=== PATIENT | female | born 1945 | race Caucasian/White ===

== ENCOUNTER 2016-07-19 15:35 | Emergency (ER) | payer OTHER, MEDICARE ==
[2016-07-19] MEDS ORDERED: FLUORESCEIN SODIUM 1 MG STRIP OP ONE ×2 (16:08→16:10)
[2016-07-19] MEDS ORDERED: PROPARACAINE 0.5% 15 ML OPHT DROP ONE (16:08)
[2016-07-19] MEDS ORDERED: PROPARACAINE 0.5% 15 ML OPHT DROP OP ONE (16:10)
--- NOTE | 2016-07-19 16:11 | EDPHY ---
H & P Time Seen by Provider: 07/19/16 15:59 HPI/ROS: CHIEF COMPLAINT: "I scratched my eye" HISTORY OF PRESENT ILLNESS: The patient is a 71-year-old female who presents emergency department after scratching her left eye. She states she is "new to contacts" starting 2 weeks ago. She was having difficulty taking her contact out. She binge to contact and came out onto her nose. However, she did not see it and she again pinched her eye with her fingers. She scratched her eye at the 9 and 3 o'clock positions. She now complains of moderate pain. She describes photophobia. She has no fevers or chills. REVIEW OF SYSTEMS: My complete review of systems is negative except as mentioned in the HPI. Past Medical/Surgical History: Includes breast cancer, hypothyroidism, double mastectomy, kidney disease Smoking Status: Never smoked Physical Exam: Vitals noted GENERAL: Well-appearing, in no acute distress, alert. Visual acuity: Noted. Eyelids: Normal inspection, everted for exam. Conjunctiva and sclera: Normal inspection. No foreign material. No subconjunctival hemorrhage. No exudate. Not injected. Corneas: Normal inspection. Examined with fluorescein dye: No uptake, abrasion, or ulcer. EOMs: Intact. Pupils: PERRL, normal accommodation. Anterior chambers: Normal inspection. No hyphema. No cells or flare. Posterior segments: Limited due to no dilation. No obvious abnormality seen Constitutional: Initial Vital Signs Temperature (C) 36.8 C 07/19/16 15:40 Heart Rate 86 07/19/16 15:40 Respiratory Rate 16 07/19/16 15:40 Blood Pressure 109/78 07/19/16 15:40 O2 Sat (%) 98 07/19/16 15:40 O2 Delivery Mode Nasal Cannula Allergies/Adverse Reactions: celecoxib [From Celebrex] Allergy (Verified 12/13/13 16:48) chlorhexidine Allergy (Verified 12/13/13 16:48) gabapentin [From Neurontin] Allergy (Verified 12/13/13 16:48) SUDAFED Allergy (Uncoded 12/13/13 16:48) VIOXX Allergy (Uncoded 12/13/13 16:46) Home Medications: Medication Instructions Recorded Alendronate Sodium [Fosamax 70 MG 70 mg PO WE@0700 12/14/13 (*)] Aspirin [Aspirin 81mg (*)] 81 mg PO DAILY 12/14/13 Calcium Carbonate/Vitamin D2 1 each PO DAILY 12/14/13 [Oyster Shell Calcium-Vit D Tab] Cetirizine [ZyrTEC 10 mg (*)] 10 mg PO DAILY PRN 12/14/13 LORazepam [Ativan (*)] 1 mg PO HS 12/14/13 Levothyroxine [Synthroid 125 mcg 100 mcg PO DAILY06 12/14/13 (*)] Venlafaxine Xr [Effexor Xr 37.5MG 37.5 mg PO HS 12/14/13 (*)] Vitamin B Complex [B Complex] 1 each PO DAILY 12/14/13 Vitamin E [Vitamin E 400 units] 400 unit PO DAILY 12/14/13 Zolpidem Tartrate [Ambien 5MG (*)] 10 mg PO HS 12/14/13 buPROPion XL [Wellbutrin 150mg XL] 300 mg PO DAILY 12/14/13 Magnesium 1 PO PRN 03/17/16 Pravastatin Sodium 20 mg PO DAILY 03/17/16 Medical Decision Making ED Course/Re-evaluation: In the emergency department I discussed possible etiologies with the patient. Patient was given proparacaine drops prior to the exam. Patient was found to have a contact lens still in place during her exam. This was removed. Slit- lamp exam did not reveal any corneal abrasion or abscess. There is no other visible foreign body. I discussed this with the patient. I consulted with Dr. Jackman who does not recommend antibiotic prophylaxis with no findings on slit- lamp exam. I discussed this with the patient. She was given warnings prior to leaving. She will not wear contacts until she follows up with her journeyman powerhouse operator. Differential Diagnosis: My differential includes but is not limited to conjunctivitis, corneal abrasion , corneal ulceration, I foreign body, contact lens irritation - Data Points Medications Given: Discontinued Medications Fluorescein Sodium ([id number]) 1 mg OP EDNOW ONE Stop: 07/19/16 16:11 Last Admin: 07/19/16 16:10 Dose: 1 mg Proparacaine HCl (Alcaine 0.5%) 1 drops OP EDNOW ONE Stop: 07/19/16 16:11 Last Admin: 07/19/16 16:11 Dose: 1 drop Departure - Departure Disposition: Home, Routine, Self-Care Clinical Impression: Contact lens intolerance, Contact lens stuck Condition: Good Instructions: Eye Foreign Body (ED) Additional Instructions: Your contact was still in place. This was removed. Do not use your contact lenses until you follow up with her journeyman powerhouse operator. Referrals: Rebel Pa MD [Primary Care Provider] - As per Instructions Julian Jackman MD [Medical Doctor] - 2-3 days, call for appt.
[2016-07-19 16:56] VITALS: BP 125/85; PULSE 84; RESP 18; TEMP 97.7; O2SAT 96
== END 2016-07-19 16:53 | disposition home or self-care (01) ==
DX: H18.822 Corneal disorder due to contact lens, left eye (principal); Z85.3 Personal history of malignant neoplasm of breast; Z79.82 Long term (current) use of aspirin; X58.XXXA Exposure to other specified factors, initial encounter

== ENCOUNTER 2016-07-30 22:55 | Observation (INO) | payer OTHER, MEDICARE ==
[2016-07-30] MEDS ORDERED: NS 1,000 ML IV ONE (23:02)
--- NOTE | 2016-07-30 23:08 | EDPHY ---
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 She presents emergency room by EMS with stroke-like symptoms. Patient states she was sitting down watching TV at 9:30 p.m. she noticed that her face felt a little bit tingly on the right side of her face as well as her right hand was more sensitive than normal. She called Dr. Flores the neurologist on-call and he recommend that she comes to the emergency room. Upon arrival here in emergency room does complain of sensation difference of her right face compared her left face as well as right upper extremity right lower extremity compared to her left upper extremity left lower extremity. She tells me she has no focal weakness, no chest pain, no shortness of breath, no headache. No neck pain. She has no nausea or visual disturbance she is complaining of right face right arm right leg tingling. Of note on neurological exam she has sensation difference cup of the right- sided body compared to left-sided body however no focal weakness. Otherwise her cranial nerves are intact no focal neuro deficit. Due to her sensation difference of the right side of her body compare left- sided body history of stroke and in the window of tPA symptoms started 9:30 p.m. it is now 11:05 p.m.. I did call a stroke alert for this patient. Her NIH stroke scale is extremely low. she does tell me when she had her stroke in 2014 at [facility] she did not receive tPA. She currently takes no anticoagulants but does take a baby aspirin. Time of symptom onset 9:30 p.m. Time of ER arrival 11:00 p.m. Time of stroke alert called the emergency room at 11:05 p.m. NIHSS: Time of NIHSS 1105PM: YONATHAN 1+ Due to Sensation difference. Past Medical History: CVA, ischemic stroke to the thalamus, breast cancer, CKD Stage3. Past Surgical History: Radical mastectomy Social History: Denies daily use of drugs alcohol tobacco products Family History: Noncontributory ROS REVIEW OF SYSTEMS: A comprehensive 10 point review of systems is otherwise negative aside from elements mentioned in the history of present illness. Exam Constitutional triage nursing summary reviewed, vital signs reviewed, awake/ alert. Eyes normal conjunctivae and sclera, EOMI, PERRLA. HENT normal inspection, atraumatic, moist mucus membranes, no epistaxis, neck supple/ no meningismus, no raccoon eyes. Respiratory clear to auscultation bilaterally, normal breath sounds, no respiratory distress, no wheezing. Cardiovascular rate normal, regular rhythm, no murmur, no edema, distal pulses normal. Gastrointestinal soft, non-tender, no rebound, no guarding, normal bowel sounds, no distension, no pulsatile mass. Genitourinary no CVA tenderness. Musculoskeletal no midline vertebral tenderness, full range of motion, no calf swelling, no tenderness of extremities, no meningismus, good pulses, neurovascularly intact. Skin pink, warm, & dry, no rash, skin atraumatic. Neurologic only pertinent focal neurological deficit on exam is a sensation difference of the right side of her body compared to left side of her body specifically right face upper and lower region of her face as well as right arm and hand compared to her left arm and hand right leg compared her left leg. No focal weakness. awake, alert and oriented x 3, AAOx3, moves all 4 extremities equally, motor intact, sensory intact, CN II-XII intact, normal cerebellar, normal vision, normal speech. Psychiatric normal mood/affect. Heme/Lymph/Immune no lymphadenopathy. Differential Diagnosis: Includes but is not limited to in a particular order, ischemic stroke, lacunar infarct, intracranial bleed, neuropathy, anxiety Medical Decision Making: plan for this patient should be placed on full awake overnight monitor showed have an IV established, she will have an EKG, chest x-ray she has been paged out as a stroke alert she will have a CT scan of her head without contrast to evaluate for acute stroke. Neurology will be consulted. It is unlikely this patient will get tPA as her NIH stroke scale is extremely low. Re-evaluation: CT scan of the Head w/o. The results of the study are Negative for bleed, or cva The study was read by Dr. Acosta. I viewed the images myself on the PACS system. ED x-ray EKG interpretation by me on record in [employer] system. Impression time of EKG 2306, this is sinus rhythm rate of 76, no signs of cardiac arrhythmia, no signs of acute ischemia. 2313: Spoke with Dr. Edward with [facility]. Will see and evaluate the patient. Does not feel this patient is a tPA candidate given the minimal symptoms. 2318: Patient is back from CT resting comfortably no further complaints. No progression of stroke-like symptoms. [facility] is evaluating her at this time 1212AM: Spoke with Dr. Noriega agrees to admit this patient this patient is hemodynamically stable this time no further progression of symptoms. Would like the patient admitted to [facility]. Patient have inpatient MRI without contrast of the head and MRA. 1213AM: I did update this patient she is agreeable for admission overnight for further delineation of possible stroke. This time she has no progression of stroke symptoms. She does not require tPA given low NIH stroke scale and very mild symptoms. We will closely monitor to see if she progresses. Full-dose aspirin has been given in the emergency room. Source: Patient, EMS - Personal History Tetanus Vaccine Date: < 10 YEARS - Medical/Surgical History Hx Asthma: No Hx Chronic Respiratory Disease: No Hx Diabetes: No Hx Cardiac Disease: No Hx Renal Disease: Yes Hx Cirrhosis: No Hx Alcoholism: No Hx HIV/AIDS: No Hx Splenectomy or Spleen Trauma: No Other PMH: BREAST CANCER, HYPOTHYROID, DOUBLE MASTECTOMY, KIDNEY DISEASE - Social History Smoking Status: Never smoked Constitutional: Initial Vital Signs Temperature (C) 36.6 C 07/30/16 23:12 Heart Rate 80 07/30/16 23:12 Respiratory Rate 16 07/30/16 23:12 Blood Pressure 162/101 H 07/30/16 23:12 O2 Sat (%) 97 07/30/16 23:12 O2 Delivery Mode Room Air Allergies/Adverse Reactions: celecoxib [From Celebrex] Allergy (Verified 12/13/13 16:48) chlorhexidine Allergy (Verified 12/13/13 16:48) gabapentin [From Neurontin] Allergy (Verified 12/13/13 16:48) propofol Allergy (Verified 07/30/16 23:12) SUDAFED Allergy (Uncoded 12/13/13 16:48) VIOXX Allergy (Uncoded 12/13/13 16:46) Home Medications: Medication Instructions Recorded Alendronate Sodium [Fosamax 70 MG 70 mg PO WE@0700 12/14/13 (*)] Aspirin [Aspirin 81mg (*)] 81 mg PO DAILY 12/14/13 Calcium Carbonate/Vitamin D2 1 each PO DAILY 12/14/13 [Oyster Shell Calcium-Vit D Tab] Cetirizine [ZyrTEC 10 mg (*)] 10 mg PO DAILY PRN 12/14/13 LORazepam [Ativan (*)] 1 mg PO HS 12/14/13 Levothyroxine [Synthroid 125 mcg 100 mcg PO DAILY06 12/14/13 (*)] Venlafaxine Xr [Effexor Xr 37.5MG 37.5 mg PO HS 12/14/13 (*)] Vitamin B Complex [B Complex] 1 each PO DAILY 12/14/13 Vitamin E [Vitamin E 400 units] 400 unit PO DAILY 12/14/13 Zolpidem Tartrate [Ambien 5MG (*)] 10 mg PO HS 12/14/13 buPROPion XL [Wellbutrin 150mg XL] 300 mg PO DAILY 12/14/13 Magnesium 1 PO PRN 03/17/16 Adrenal Support 07/30/16 CO Q-10 07/30/16 Nerve Renew 07/30/16 [place]-3 07/30/16 Red Yeast Rice 07/30/16 Medical Decision Making - Data Points Laboratory Results: Laboratory Results 07/30/16 23:05 07/30/16 23:05 07/30/16 07/30/16 07/30/16 23:05 23:05 23:05 WBC 6.25 10^3/uL 10^3/uL (3.80-9.50) RBC 5.22 10^6/uL 10^6/uL (4.18-5.33) Hgb 15.9 g/dL g/dL (12.6-16.3) POC Hgb Hct 47.3 % H % (38.0-47.0) POC Hct MCV 90.6 fL fL (81.5-99.8) MCH 30.5 pg pg (27.9-34.1) MCHC 33.6 g/dL g/dL (32.4-36.7) RDW 13.0 % % (11.5-15.2) Plt Count 269 10^3/uL 10^3/uL (150-400) MPV 10.6 fL fL (8.7-11.7) Neut % (Auto) 58.4 % % (39.3-74.2) Lymph % (Auto) 26.9 % % (15.0-45.0) Teller % (Auto) 9.4 % % (4.5-13.0) Eos % (Auto) 4.5 % % (0.6-7.6) Baso % (Auto) 0.5 % % (0.3-1.7) Nucleat RBC Rel Count 0.0 % % (0.0-0.2) Absolute Neuts (auto) 3.65 10^3/uL 10^3/uL (1.70-6.50) Absolute Lymphs (auto) 1.68 10^3/uL 10^3/uL (1.00-3.00) Absolute Monos (auto) 0.59 10^3/uL 10^3/uL (0.30-0.80) Absolute Eos (auto) 0.28 10^3/uL 10^3/uL (0.03-0.40) Absolute Basos (auto) 0.03 10^3/uL 10^3/uL (0.02-0.10) Absolute Nucleated RBC 0.00 10^3/uL 10^3/uL (0-0.01) Immature Gran % 0.3 % % (0.0-1.1) Immature Gran # 0.02 10^3/uL 10^3/uL (0.00-0.10) PT 12.0 SEC SEC (12.0-15.0) INR 0.90 (0.83-1.16) APTT 23.6 SEC SEC (23.0-38.0) POC Sodium Sodium 138 mEq/L mEq/L (134-144) POC Potassium Potassium 4.4 mEq/L mEq/L (3.5-5.2) POC Chloride Chloride 100 mEq/L mEq/L (97-110) Carbon Dioxide 25 mEq/l mEq/l (22-31) Anion Gap 13 mEq/L mEq/L (8-16) POC BUN BUN 19 mg/dL mg/dL (7-23) Creatinine 1.3 mg/dL H mg/dL (0.6-1.0) POC Creatinine Estimated GFR 40 Glucose 93 mg/dL mg/dL (70-100) POC Glucose Calcium 10.8 mg/dL H mg/dL (8.5-10.4) Phosphorus Pending Troponin I < 0.012 ng/mL ng/mL (0-0.034) 07/30/16 23:00 WBC RBC Hgb POC Hgb 17.3 gm/dL H gm/dL (12.3-15.9) Hct POC Hct 51 % H % (35.5-47.5) MCV MCH MCHC RDW Plt Count MPV Neut % (Auto) Lymph % (Auto) Teller % (Auto) Eos % (Auto) Baso % (Auto) Nucleat RBC Rel Count Absolute Neuts (auto) Absolute Lymphs (auto) Absolute Monos (auto) Absolute Eos (auto) Absolute Basos (auto) Absolute Nucleated RBC Immature Gran % Immature Gran # PT INR APTT POC Sodium 142 mEq/L mEq/L (134-144) Sodium POC Potassium 4.1 mEq/L mEq/L (3.3-5.0) Potassium POC Chloride 102 mEq/L mEq/L (96-108) Chloride Carbon Dioxide Anion Gap POC BUN 20 mg/dL mg/dL (7-23) BUN Creatinine POC Creatinine 1.3 mg/dL H mg/dL (0.6-1.2) Estimated GFR Glucose POC Glucose 101 mg/dL H mg/dL (70-100) Calcium Phosphorus Troponin I Point of Care Test Results: 07/30/16 23:00 POC Sodium 142 POC Potassium 4.1 POC Chloride 102 POC BUN 20 POC Creatinine 1.3 H POC Glucose 101 H Departure - Departure Disposition: [facility] Inpatient Acute Clinical Impression: Facial paresthesia Condition: Fair Referrals: Patient,NotPresent [Unknown] - As per Instructions
--- NOTE | 2016-07-30 23:08 | CPEKG ---
Heart Rate: 76 RR Interval: 789 P-R Interval: 156 QRSD Interval: 90 QT Interval: 400 QTC Interval: 450 P [place]: 55 QRS [place]: 32 T Wave [place]: 43 EKG Severity - NORMAL ECG - EKG Impression: SINUS RHYTHM Electronically Signed By: Carlos Calero 01-Aug-2016 06:46:10
[2016-07-30 23:23] LABS: % IMMATURE GRANULYOCYTES 0.3 % (0.0-1.1); ABSOLUTE IMMATURE GRANULOCYTES 0.02 10^3/uL (0.00-0.10); ADD DIFF? NO; ADD MORPH? NO; ADD SCAN? NO; ATYPICAL LYMPHOCYTE FLAG 10 (0-99); FRAGMENT RBC FLAG 0 (0-99); HEMATOCRIT 47.3 % (38.0-47.0); HEMOGLOBIN 15.9 g/dL (12.6-16.3); LEFT SHIFT FLG 0 (0-99); LIPEMIA HEMOLYSIS FLAG 80 (0-99); MEAN CELL HEMOGLOBIN 30.5 pg (27.9-34.1); MEAN CELL HEMOGLOBIN CONCENTR. 33.6 g/dL (32.4-36.7); MEAN CELL VOLUME 90.6 fL (81.5-99.8); MEAN PLATELET VOLUME 10.6 fL (8.7-11.7); PLATELET CLUMPS FLAG 0 (0-99); PLATELET COUNT 269 10^3/uL (150-400); RED BLOOD CELL COUNT 5.22 10^6/uL (4.18-5.33)
[2016-07-30 23:27] LABS: INR 0.9 (0.83-1.16)
[2016-07-30 23:28] LABS: APTT 23.6 SEC (23.0-38.0)
[2016-07-30 23:36] LABS: ANION GAP 13 mEq/L (8-16); CALCIUM 10.8 mg/dL (8.5-10.4); CARBON DIOXIDE 25 mEq/l (22-31); CHLORIDE 100 mEq/L (97-110); CREATININE 1.3 mg/dL (0.6-1.0); GLOMERULAR FILTRATION RATE 40; GLUCOSE 93 mg/dL (70-100); POTASSIUM 4.4 mEq/L (3.5-5.2); SODIUM 138 mEq/L (134-144)
[2016-07-30] MEDS ORDERED: ASPIRIN EC 325 MG TAB PO ONE (23:41)
[2016-07-30 23:47] LABS: TROPONIN I < 0.012 ng/mL (0-0.034)
[2016-07-31] MEDS ORDERED: NS 1,000 ML IV SCH (00:30)
[2016-07-31] MEDS ORDERED: LORazepam 1 MG TAB PO ONE (01:25)
--- NOTE | 2016-07-31 01:30 | PDGENHP ---
History and Physical - Chief Complaint Acute paresthesias - History of Present Illness PCP: Dr. Pa Primary neurologist: Dr. Garza HPI: 71-year-old female presenting with acute paresthesias characterized as numbness located in the right lower extremity, right upper extremity, right face with onset of symptoms at 9:30 p.m. on the day of presentation. Duration has been persistent thereafter. She denies any related paresis, no related headache, no ataxia or dysarthria. She did have some associated precipitating pain located in her left neck but was otherwise feeling well on the date of presentation. She has been taking all of her home medications as scheduled, including her aspirin 81 mg nightly. She does endorse taking a "handful" of supplements and vitamins on the day of presentation. She reports that she has been peeing normally. History Information - Allergies/Home Medication List Allergies/Adverse Reactions: celecoxib [From Celebrex] Allergy (Verified 12/13/13 16:48) chlorhexidine Allergy (Verified 12/13/13 16:48) gabapentin [From Neurontin] Allergy (Verified 12/13/13 16:48) propofol Allergy (Verified 07/30/16 23:12) SUDAFED Allergy (Uncoded 12/13/13 16:48) VIOXX Allergy (Uncoded 12/13/13 16:46) Home Medications: Alendronate Sodium [Fosamax 70 MG (*)] 70 mg PO WE@0700 12/14/13 [Last Taken 04/17 08:00] Aspirin [Aspirin 81mg (*)] 81 mg PO DAILY 12/14/13 [Last Taken 03/16/16 22:00] Calcium Carbonate/Vitamin D2 [[place]yster [place] Calcium-Vit D Tab] 1 each PO DAILY [Last Taken 03/16/16 22:00] Cetirizine [ZyrTEC 10 mg (*)] 10 mg PO DAILY PRN 12/14/13 [Last Taken 03/17/16 08:30] LORazepam [Ativan (*)] 1 mg PO HS 12/14/13 [Last Taken 03/16/16 22:00] Levothyroxine [Synthroid 125 mcg (*)] 100 mcg PO DAILY06 12/14/13 [Last Taken 08:30] Venlafaxine Xr [Effexor Xr 37.5MG (*)] 37.5 mg PO HS 12/14/13 [Last Taken 08:30] Vitamin B Complex [B Complex] 1 each PO DAILY 12/14/13 [Last Taken 03/16/16 08: 00] Vitamin E [Vitamin E 400 units] 400 unit PO DAILY 12/14/13 [Last Taken 03/16/16 08:00] Zolpidem Tartrate [Ambien 5MG (*)] 10 mg PO HS 12/14/13 [Last Taken 03/16/16 22: 00] buPROPion XL [Wellbutrin 150mg XL] 300 mg PO DAILY 12/14/13 [Last Taken 08:30] Magnesium 1 PO PRN 03/17/16 [Last Taken 03/16/16 22:00] Adrenal Support 07/30/16 [Last Taken Unknown] CO Q-10 07/30/16 [Last Taken Unknown] Nerve Renew 07/30/16 [Last Taken Unknown] [place]-3 07/30/16 [Last Taken Unknown] Red Yeast Rice 07/30/16 [Last Taken Unknown] I have personally reviewed and updated: family history, medical history, social history, surgical history - Past Medical History CVA ( Reportedly thalamic in 2014 with workup at [facility] and residual symptoms including right hand hyperesthesia) Additional medical history: Breast cancer status post Arimidex. Chronic kidney disease stage 3 with baseline creatinine 1.2-1.4. Depression and insomnia. Chronic neck pain with chronic neuropathy. Recent corneal abrasion - Surgical History Reports: mastectomy - Family History Additional family history: no recent sick family contacts - Social History Smoking Status: Never smoked Alcohol Use: Occasionally (none on date of presentation) Drug Use: None Additional social history: normally independent in ADLs Review of Systems ROS: 10pt was reviewed & negative except for what was stated in HPI & below Neurological: Reports: paresthesia ( right-sided) Physical Exam Temp Pulse Resp BP Pulse Ox 36.6 C 76 16 135/84 H 96 07/30/16 23:12 07/31/16 00:15 07/31/16 00:15 07/31/16 00:15 07/31/16 00:15 Constitutional: no apparent distress, appears nourished, not in pain Eyes: PERRL, anicteric sclera, EOMI Ears, Nose, Mouth, Throat: moist mucous membranes, hearing normal, ears appear normal, no oral mucosal ulcers Cardiovascular: regular rate and rhythym, no murmur, rub, or gallop, No carotid bruit, No edema Respiratory: no respiratory distress, no rales or rhonchi, clear to auscultation Gastrointestinal: normoactive bowel sounds, soft, non-tender abdomen, no palpable masses Genitourinary: no bladder fullness, no bladder tenderness, no renal bruits Neurologic: AAOx3, CN II-XII Intact, other ( normal heel to johnson, normal finger- to-nose bilaterally), No sensation intact bilaterally ( right-sided subjective paresthesias in the lower extremity, upper extremity, face), No weakness Psychiatric: interacting appropriately, not anxious, not encephalopathic, thought process linear Lab Data & Imaging Review 07/30/16 23:05 07/30/16 23:05 WBC 6.25 10^3/uL (3.80-9.50) 07/30/16 23:05 RBC 5.22 10^6/uL (4.18-5.33) 07/30/16 23:05 Hgb 15.9 g/dL (12.6-16.3) 07/30/16 23:05 POC Hgb 17.3 gm/dL (12.3-15.9) H 07/30/16 23:00 Hct 47.3 % (38.0-47.0) H 07/30/16 23:05 POC Hct 51 % (35.5-47.5) H 07/30/16 23:00 MCV 90.6 fL (81.5-99.8) 07/30/16 23:05 MCH 30.5 pg (27.9-34.1) 07/30/16 23:05 MCHC 33.6 g/dL (32.4-36.7) 07/30/16 23:05 RDW 13.0 % (11.5-15.2) 07/30/16 23:05 Plt Count 269 10^3/uL (150-400) 07/30/16 23:05 MPV 10.6 fL (8.7-11.7) 07/30/16 23:05 Neut % (Auto) 58.4 % (39.3-74.2) 07/30/16 23:05 Lymph % (Auto) 26.9 % (15.0-45.0) 07/30/16 23:05 Stone % (Auto) 9.4 % (4.5-13.0) 07/30/16 23:05 Eos % (Auto) 4.5 % (0.6-7.6) 07/30/16 23:05 Baso % (Auto) 0.5 % (0.3-1.7) 07/30/16 23:05 Nucleat RBC Rel Count 0.0 % (0.0-0.2) 07/30/16 23:05 Absolute Neuts (auto) 3.65 10^3/uL (1.70-6.50) 07/30/16 23:05 Absolute Lymphs (auto) 1.68 10^3/uL (1.00-3.00) 07/30/16 23:05 Absolute Monos (auto) 0.59 10^3/uL (0.30-0.80) 07/30/16 23:05 Absolute Eos (auto) 0.28 10^3/uL (0.03-0.40) 07/30/16 23:05 Absolute Basos (auto) 0.03 10^3/uL (0.02-0.10) 07/30/16 23:05 Absolute Nucleated RBC 0.00 10^3/uL (0-0.01) 07/30/16 23:05 Immature Gran % 0.3 % (0.0-1.1) 07/30/16 23:05 Immature Gran # 0.02 10^3/uL (0.00-0.10) 07/30/16 23:05 PT 12.0 SEC (12.0-15.0) 07/30/16 23:05 INR 0.90 (0.83-1.16) 07/30/16 23:05 APTT 23.6 SEC (23.0-38.0) 07/30/16 23:05 POC Sodium 142 mEq/L (134-144) 07/30/16 23:00 Sodium 138 mEq/L (134-144) 07/30/16 23:05 POC Potassium 4.1 mEq/L (3.3-5.0) 07/30/16 23:00 Potassium 4.4 mEq/L (3.5-5.2) 07/30/16 23:05 POC Chloride 102 mEq/L (96-108) 07/30/16 23:00 Chloride 100 mEq/L (97-110) 07/30/16 23:05 Carbon Dioxide 25 mEq/l (22-31) 07/30/16 23:05 Anion Gap 13 mEq/L (8-16) 07/30/16 23:05 POC BUN 20 mg/dL (7-23) 07/30/16 23:00 BUN 19 mg/dL (7-23) 07/30/16 23:05 Creatinine 1.3 mg/dL (0.6-1.0) H 07/30/16 23:05 POC Creatinine 1.3 mg/dL (0.6-1.2) H 07/30/16 23:00 Estimated GFR 40 07/30/16 23:05 Glucose 93 mg/dL (70-100) 07/30/16 23:05 POC Glucose 101 mg/dL (70-100) H 07/30/16 23:00 Calcium 10.8 mg/dL (8.5-10.4) H 07/30/16 23:05 Phosphorus 3.4 mg/dL (2.5-4.5) 07/30/16 23:05 Troponin I < 0.012 ng/mL (0-0.034) 07/30/16 23:05 Visualized and Interpreted Chest x-ray results: Yes Chest X-Ray results: no infiltrate Visualized and Interpreted EKG results: Yes EKG Interpretation: Positive for: other ( normal sinus rhythm with poor R-wave progression in lead V2) Assessment & Plan Assessment: 71-year-old female presenting with acute daron-paresthesia in the setting of previous thalamic CVA Plan: 1. Daron-paresthesia. Acute, new problem this provider, further workup indicated. Potential etiologies include CVA versus cervical stenosis versus revisitation versus hypercalcemia. - discussed with Dr. Calero in the emergency department, he has reported to me that [facility] has evaluated the patient and because the patient has an NIH stroke scale of 1, no tPA shall be administered - [facility] has recommended MRI of the brain, MRA of the brain for - given underlying CKD, will pursue carotid ultrasounds - get MRI of cervical spine to evaluate for stenosis - reviewed outside records including 03/17/2016 transesophageal echocardiogram demonstrating moderate mitral regurgitation, no evidence of left atrial mass - monitor on telemetry - get lipid panel - get Neurology consultation - administered full-dose aspirin in the emergency department, if it is determined that the patient did indeed have a CVA, then would recommend Aggrenox therapy given that patient is averse to Plavix due to significant ecchymoses back in 2015 2. Chronic neck pain. Review of outside records includes 12/14/[address] 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 Chronic kidney disease stage 3. currently at baseline, repeat creatinine level in a.m. 4. Hypercalcemia. Acute, serum calcium level is marginally elevated, get serum albumin level to estimate corrected calcium level - patient recently had labs performed on 06/22/2016, normal calcium level at that time, normal phos, marginally elevated PTH most likely secondary to CKD - give IV normal saline 100 cc/hour overnight and repeat full chemistry panel in a.m. - most likely secondary to oral calcium supplements taken by the patient on the date of this presentation Diet. Cardiac Prophylaxis. Low risk patient, SCDs Code. Full Disposition. Anticipated discharge is 07/31/2016, pending further workup as outlined above.
[2016-07-31 01:43] LABS: ALBUMIN 5.1 g/dL (3.5-5.0)
[2016-07-31 05:38] LABS: % IMMATURE GRANULYOCYTES 0.2 % (0.0-1.1); ABSOLUTE IMMATURE GRANULOCYTES 0.01 10^3/uL (0.00-0.10); ADD DIFF? NO; ADD MORPH? NO; ADD SCAN? NO; ATYPICAL LYMPHOCYTE FLAG 10 (0-99); FRAGMENT RBC FLAG 0 (0-99); HEMATOCRIT 37.9 % (38.0-47.0); HEMOGLOBIN 12.7 g/dL (12.6-16.3); LEFT SHIFT FLG 0 (0-99); LIPEMIA HEMOLYSIS FLAG 80 (0-99); MEAN CELL HEMOGLOBIN 29.8 pg (27.9-34.1); MEAN CELL HEMOGLOBIN CONCENTR. 33.5 g/dL (32.4-36.7); MEAN PLATELET VOLUME 10.6 fL (8.7-11.7); PLATELET CLUMPS FLAG 10 (0-99); PLATELET COUNT 214 10^3/uL (150-400); RED BLOOD CELL COUNT 4.26 10^6/uL (4.18-5.33); RED CELL DISTRIBUTION WIDTH 12.9 % (11.5-15.2)
[2016-07-31 05:51] LABS: ALANINE AMINOTRANSFERASE 34 IU/L (9-52); ALBUMIN 3.8 g/dL (3.5-5.0); ALKALINE PHOSPHATASE 67 IU/L (38-126); ANION GAP 10 mEq/L (8-16); ASPARTATE AMINOTRANSFERASE 21 IU/L (14-46); BILIRUBIN,TOTAL 0.5 mg/dL (0.1-1.4); CALCIUM 8.9 mg/dL (8.5-10.4); CARBON DIOXIDE 24 mEq/l (22-31); CHLORIDE 106 mEq/L (97-110); CHOLESTEROL 218 mg/dL (140-220); CHOLESTEROL/HDL RATIO 2.99 RATIO (1.00-4.44); CREATININE 1.3 mg/dL (0.6-1.0); GLOMERULAR FILTRATION RATE 40; GLUCOSE 113 mg/dL (70-100); HIGH DENSITY LIPOPROTEIN 73 mg/dL (40-85); LDL/HDL RATIO 1.82 RATIO (1.00-3.22); LOW DENSITY LIPOPROTEIN 133 mg/dL (80-100); NON-HIGH DENSITY LIPOPROTEIN 145 mg/dL (90-129); POTASSIUM 4.3 mEq/L (3.5-5.2); SODIUM 140 mEq/L (134-144); TOTAL PROTEIN 6.2 g/dL (6.3-8.2); TRIGLYCERIDE 62 mg/dL (35-135); VERY LOW DENSITY LIPOPROTEINS 12 mg/dL (8-25)
--- NOTE | 2016-07-31 08:41 | HOSPPROG ---
Hospitalist Progress Note Assessment/Plan: #Parathesias: cervical stenosis vs TIA. Carotid U/S negative. TTE in Mar 18 with MR -evaluated by Dirk Mallory, no indication for t-PA. -h/o a fib. Cervical spine MRI pending #h/o thalamic CVA: 2014 #Chronic neck pain: h/o bilateral neuroforaminal stenosis C5-C6. MRI pending Subjective: still with right hand hyperasthesia Objective: Vital Signs Temp Pulse Resp BP Pulse Ox 36.8 C 76 16 112/72 92 07/31/16 08:24 07/31/16 08:24 07/31/16 08:24 07/31/16 08:24 07/31/16 08:24 Laboratory Results 07/31/16 04:52 07/31/16 04:52 07/30/16 07/31/16 08/01/16 05:59 05:59 05:59 Intake Total 1000 Balance 1000 PT 12.0 SEC (12.0-15.0) 07/30/16 23:05 INR 0.90 (0.83-1.16) 07/30/16 23:05 - Physical Exam Constitutional: no apparent distress Eyes: PERRL Ears, Nose, Mouth, Throat: moist mucous membranes Cardiovascular: regular rate and rhythym Respiratory: no respiratory distress Gastrointestinal: normoactive bowel sounds Genitourinary: no bladder fullness Skin: warm Musculoskeletal: full muscle strength Neurologic: AAOx3, CN II-XII Intact, other (decreased sen) Psychiatric: interacting appropriately Lymph, Heme, Immunologic: no cervical LAD ICD10 Worksheet Patient Problems: Problems Problem Status Onset Facial paresthesia Acute Unsteady gait Acute
[2016-07-31] MEDS ORDERED: ASPIRIN 81 MG CHEWABLE TAB PO SCH (09:00)
[2016-07-31] MEDS ORDERED: ASPIRIN EC 325 MG TAB PO SCH (09:00)
--- NOTE | 2016-07-31 13:22 | GCON ---
[f rep st] CONSULTATION NEUROLOGY CONSULTATION REFERRING PHYSICIAN: Keo Noriega MD HISTORY: The patient is a 71-year-old woman who I am asked to see in neurologic consultation regard ing a chief complaint of numb sensations. She had developed symptoms yesterday around 9:30 p.m. liz racterized by more numbness in her right hand beyond the baseline and some right lower extremity and facial numbness. She called me in the evening to tell me about the symptoms and I told her she ivana uld go to the emergency room because this could represent a stroke. She has a history of thalamic s troke a few years ago treated at [facility]. She had some residual numbness in the right barboza d but no other chronic problems. The symptoms have improved, but she still feels slightly abnormal in the right leg and hand. She does not have any definite weakness although the hand feels a little bit heavy. She normally does take a daily aspirin. She is followed by Dr. Pa. She has had echocardiogram in March and transesophageal echocardiogram and nothing specifically i dentified. She has some mitral valve disease. She is not known to have atrial fibrillation. Exten sive workup for possible causes of stroke have been unrevealing. The symptoms were mild but persisting and have gradually improved. No clear-cut alleviating or exac erbating factors. At this point, she feels significantly better but not completely back to normal i n terms of the distribution of symptoms. She had evaluation in the emergency department in case the re was a need for stroke intervention, but it was felt that would not be appropriate given the very mild nature of the symptoms. Her head CT was unremarkable. She has now had brain MRI that does not show a stroke with some nonspecific white matter changes. Cervical spine shows multilevel foramina l stenoses but nothing that really accounts for these symptoms. MR angiogram of the head is unremar kable. Carotid ultrasound shows no hemodynamically significant stenoses. Laboratory studies are no table for LDL cholesterol of 133. She has previously been on a statin but had some side effects of pain in the right hip when she was on pravastatin so has been off that. The attempt in the future s he said was to try to work on diet and some other strategies before going back to a statin, but she would be willing to do that. The rest of her labs are otherwise relatively unremarkable. REVIEW OF SYSTEMS: A 10-point review of systems is completed and unremarkable except for that noted above. 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 [place] cancer with treatment using Arimidex. Chronic kidney disease, some depression and insomnia. N laura pain. FAMILY HISTORY: Noncontributory. SOCIAL HISTORY: No smoking. Occasional alcohol. No drug use. Normally functions quite independen tly. MEDICATIONS ON ADMISSION: Fosamax, aspirin 81 mg daily, Zyrtec for allergies, lorazepam in the even ings, levothyroxine, Effexor, vitamin B, vitamin E, Ambien as needed for sleep, bupropion, magnesium , adrenal support, red yeast rice and omega-3 and something called Nerve Renew. ALLERGIES: To Celebrex, chlorhexidine, gabapentin, propofol, Sudafed, Vioxx. PHYSICAL EXAMINATION: VITAL SIGNS: Blood pressure is 132/73, pulse is 74, respirations 16, tempera ture 36.5. GENERAL: She is well developed in no acute distress. EYES: Clear. NECK: Supple with no bruits or masses. CARDIAC: Regular rate and rhythm. No murmur. EXTREMITIES: No cyanosis or edema. NEURO: She is alert and attentive with clear fluent speech and normal cognition. She is or iented to person, place, and time. Normal language skills. Good concentration and attention as wel l as good recent and remote memory and normal general fund of knowledge. Pupils are 3 mm and reacti ve. Extraocular movements are intact. Unremarkable fundi. No visual field loss. Normal facial se nsation and strength. Palate elevates symmetrically. Tongue protrudes midline. Hearing is intact. No weakness of head turning or shoulder shrug. Motor examination reveals normal muscle bulk and t one with 5/5 strength in the upper and lower extremities. No abnormal movements are present. Sensa tion is altered slightly to temperature perception in the right leg compared to the left but light t ouch feels about the same. It is diminished in the right lower extremity in terms of her cold perce ption. In the right hand, there is decreased cold perception which is not new, she says. Reflexes are 1+. No ataxic movements in the upper extremities. No pathologic reflexes. DIAGNOSTIC STUDIES: As outlined above. IMPRESSION: The patient has experienced episode involving right-sided paresthesias worse than her b aseline from an old thalamic stroke, although the MRI does not show an old distinct stroke. She has nonspecific vascular changes and no evidence of an acute stroke. The extensive workup has included recent echocardiogram which was unremarkable. She has evaluation of the intracranial circulation a s well as extracranial circulation that shows no significant stenoses. I do not know exactly has oc curred with this episode, but it is clearly not a stroke by the MRI. Transient ischemic attack is a differential consideration. Sometimes patients with thalamic strokes can have thalamic pain syndro mes and paresthesias without finding anything more specific and perhaps that is occurring. I think for now, we can stop the workup and she can safely be discharged with outpatient followup. Her elev ated cholesterol should be treated with a statin at this point most likely, and I would recommend belinda tovar an alternative to the pravastatin where she had trouble. I think simvastatin 40 mg daily would be appropriate and would recommend that. She may or may not actually be an aspirin failure based o n this presentation. She had been on Plavix in the past and had a lot of problems with bleeding, so I do not feel she has to do that and we will simply continue the aspirin. She has peripheral neuro candy with prior history of chemotherapy and breast cancer. Breast cancer is currently in remission . If neuropathic pain symptoms and paresthesias persist on the right side, I might consider trying a medication for that, such as Lyrica or gabapentin, but would defer on that for the moment and she can follow up with me as an outpatient if this becomes an ongoing issue. She will work with her ye anson care for the general medical problems as well as Cardiology as needed. /[id number]/MODL
[2016-07-31 13:26] VITALS: BP 130/73; PULSE 73; RESP 15; TEMP 97.5; O2SAT 94
--- NOTE | 2016-07-31 15:28 | GDS ---
[f rep st] DISCHARGE SUMMARY DISCHARGE DIAGNOSES: 1. Right hand paresthesias. 2. History of a thalamic stroke in 2014 at [facility] with residual symptoms, including righ t hand hyperesthesia. 3. History of breast cancer, status post a mastectomy and Arimidex. 4. Chronic kidney disease stage 3. 5. Depression. 6. Insomnia. 7. Chronic neck pain. 8. Peripheral neuropathy. 9. Recent corneal abrasion. CONSULTATIONS: Neurology. HISTORY OF PRESENT ILLNESS: Patient is a 71-year-old female presenting with acute paresthesias goldy acterized as numbness located in the right lower extremity, upper extremity as well as her face. Th sergio symptoms occurred at 9:30, day of admission and have persisted thereafter. She denies any heada keven, ataxia or slurred speech. She had some associated precipitating pain in the left side of her n laura but was otherwise feeling well. She has been taking all of her home medications. She is curren tly on aspirin 81 mg daily. She had previously been on Plavix but had issues with bruising and blee ding. Also, I previously recommended statin, which she discontinued due to hip pain. HOSPITAL COURSE BY PROBLEM: 1. Right-sided paresthesias: This worse than her baseline after an old thalamic stroke. There is no distinct stroke on MRI here. She has nonspecific vascular changes. She had a recent echocardiog dilshad in March that was unremarkable. No evidence of stenosis on carotid ultrasound or MRA. Per N eurology thalamic strokes can have pain syndromes and paresthesias without finding anything more spe cific. At this point, there is no further evaluation warranted. She is willing to try another type of statin. Thus, will discharge her on simvastatin 40 mg, and she is to continue baby aspirin. Austin aviles had been on Plavix in the past but had a lot of problems with bleeding and bruising. Thus, we elia l just stay with the aspirin. 2. Peripheral neuropathy secondary to prior chemotherapy. 3. History of breast cancer, status post mastectomy, chemo. 4. Neuropathic pain. Dr. Flores will consider Lyrica versus gabapentin but will decide this as an outpatient. 5. Patient is stable for discharge. NEW MEDICATIONS: Simvastatin 40 mg daily. FOLLOWUP: Dr. Flores. /[id number]/MODL
== END 2016-07-31 14:22 | disposition home or self-care (01) ==
LOC: EDUNIT# → INTOOBSV 07-31 00:14 → F1N 07-31 01:20
PROVIDERS: ADMIT Internal Medicine; ATTEND Internal Medicine
DX: R20.2 Paresthesia of skin (principal); I69.931 Monoplegia of upper limb following unspecified cerebrovascular disease affecting right dominant side; N18.3 Chronic kidney disease, stage 3 (moderate); E83.52 Hypercalcemia; M54.2 Cervicalgia; M48.02 Spinal stenosis, cervical region; E78.5 Hyperlipidemia, unspecified; G89.29 Other chronic pain; G62.0 Drug-induced polyneuropathy; G47.00 Insomnia, unspecified; E03.9 Hypothyroidism, unspecified; Z85.3 Personal history of malignant neoplasm of breast; Z79.82 Long term (current) use of aspirin; Z90.13 Acquired absence of bilateral breasts and nipples
CPT/HCPCS: 70450; 70544; 70551; 71010; 72141; 93005; 93880; G0378; 82947-QW

== ENCOUNTER 2016-09-20 23:21 | Emergency (ER) | payer OTHER, MEDICARE ==
[2016-09-20 23:31] VITALS: BP 150/92; PULSE 71; RESP 18; TEMP 97.3; O2SAT 98
[2016-09-20] MEDS ORDERED: FLUORESCEIN SODIUM 1 MG STRIP OP ONE ×2 (23:33→23:41)
[2016-09-20] MEDS ORDERED: PROPARACAINE 0.5% 15 ML OPHT DROP OP ONE (23:33)
[2016-09-20] MEDS ORDERED: PROPARACAINE 0.5% 15 ML OPHT DROP ONE (23:41)
--- NOTE | 2016-09-21 00:01 | EDPHY ---
H & P Time Seen by Provider: 09/20/16 23:33 HPI/ROS: CHIEF COMPLAINT: Possible retained contact lens left eye HISTORY OF PRESENT ILLNESS: 71-year-old female complaining of foreign body sensation left eye possible retained contact lens after repeatedly trying to remove the contact lens this evening. No visual acuity changes. No photophobia. No headache. PHYSICAL EXAM (Prior to examination, patient consented to physical exam, hands were washed and my usual and customary physical exam procedures followed) 1) GENERAL: Well-developed, well-nourished, alert and oriented. Appears to be in no acute distress. 2) HEAD: Normocephalic 3) HEENT: sclera anicteric 4) LUNGS: Breathing comfortably. 5) OCULAR EXAM: Visual Acuity: noted from Nurse's notes. Pupils:equal round and reactive to light EOMI Lids: no edema or swelling, upper and lower lids were everted and no foreign bodies were visualized, no areas of increased fluorescein uptake. Skin: no proptosis, no periorbital erythema or swelling, no vesicles, no pain with extraocular movements. Conjunctivae: not injected, no discharge, negative Ely test. Cornea: exam with fluorescein shows area of increased uptake at the 2 o'clock position consistent with corneal abrasion as well as pitting of the cornea consistent with Anterior chamber:[normal, no hyphema or hypopyon Smoking Status: Never smoked Constitutional: Initial Vital Signs Temperature (C) 36.3 C 09/20/16 23:28 Heart Rate 71 09/20/16 23:28 Respiratory Rate 18 09/20/16 23:28 Blood Pressure 150/92 H 09/20/16 23:28 O2 Sat (%) 98 09/20/16 23:28 O2 Delivery Mode Room Air Allergies/Adverse Reactions: celecoxib [From Celebrex] Allergy (Verified 12/13/13 16:48) chlorhexidine Allergy (Verified 12/13/13 16:48) gabapentin [From Neurontin] Allergy (Verified 12/13/13 16:48) propofol Allergy (Verified 07/30/16 23:12) SUDAFED Allergy (Uncoded 12/13/13 16:48) VIOXX Allergy (Uncoded 12/13/13 16:46) Home Medications: Medication Instructions Recorded Alendronate Sodium [Fosamax 70 MG 1 tab PO .[id number] 07/31/16 (*)] Aspirin [Aspirin 81mg (*)] 81 mg PO DAILY 07/31/16 Calcium Carb W/Vit D [Calcium Carb 500 mg PO DAILY 07/31/16 W/Vit D 500/200 (*)] Herbals/Supplements -Info Only 1 ea PO DAILY 07/31/16 LORazepam [Ativan (*)] 1 mg PO HS 07/31/16 Levothyroxine [Synthroid 100 mcg 100 mcg PO DAILY06 07/31/16 (*)] Magnesium Oxide [Magnesium Oxide 1 tab PO DAILY PRN 07/31/16 400 mg (*)] [place]-3 Fatty Acids [Fish Oil 1000 3,000 mg PO BID 07/31/16 mg (*)] Simvastatin 40 mg PO DAILY #30 tablet 07/31/16 Venlafaxine Xr [Effexor Xr 37.5MG 37.5 mg PO DAILY 07/31/16 (*)] Zolpidem Tartrate [Ambien 5MG (*)] 5 mg PO HS 07/31/16 buPROPion XL [Wellbutrin 150mg XL] 300 mg PO DAILY 07/31/16 Lisinopril 09/20/16 MDM/Departure - [facility] ED Course/Re-evaluation: No evidence of retained contact lens or foreign body. She does have a corneal abrasion which may be secondary to repeated attempts at removal of a contact lens which is no longer there. She is started on Ocuflox and recommend follow up with Ophthalmology in 1-2 days. Usual and customary ophthalmological precautions and instructions provided - Depart Disposition: Home, Routine, Self-Care Clinical Impression: Left corneal abrasion Qualifiers: Encounter type: initial encounter Qualified Code(s): S05.02XA - Injury of conjunctiva and corneal abrasion without foreign body, left eye, initial encounter Condition: Good Instructions: Corneal Abrasion (ED) Referrals: Anthony Mejias MD [Medical Doctor] - 1-2 days without fail
[2016-09-21] MEDS ORDERED: OFLOXACIN 0.3% SOLN PREPACK OPHT.BTL TAKEHOME ONE (00:02)
== END 2016-09-21 00:16 | disposition home or self-care (01) ==
DX: S05.02XA Injury of conjunctiva and corneal abrasion without foreign body, left eye, initial encounter (principal); Z79.82 Long term (current) use of aspirin; W22.8XXA Striking against or struck by other objects, initial encounter; Y99.8 Other external cause status

== ENCOUNTER → 2017-11-09 | Outpatient (CLI) | payer OTHER | LOC: BHFA 13:30 | PROVIDERS: ATTEND Internal Medicine Cardiovascular Disease | DX: Z01.810 Encounter for preprocedural cardiovascular examination (principal); I63.8 Other cerebral infarction; I10 Essential (primary) hypertension; I34.0 Nonrheumatic mitral (valve) insufficiency; E78.5 Hyperlipidemia, unspecified; N28.9 Disorder of kidney and ureter, unspecified ==